=== PATIENT | female | born 1980 | race Caucasian/White ===

== ENCOUNTER 2024-08-17 19:38 | Emergency (ER) | payer OTHER, SELFPAY ==
[2024-08-17 19:38] VITALS: BMI 25.3
[2024-08-17 19:42] VITALS: BP 133/82
[2024-08-17 20:02] LABS: Urine Albumin 2+ (Neg - Trace); Urine Bilirubin Negative (Negative); Urine Character Slightly Cloudy (Clear); Urine Color Yellow; Urine Glucose Negative (Negative); Urine Ketone Negative (Negative); Urine Leukocyte 2+ (Negative); Urine Nitrite Negative (Negative); Urine Occult Blood 3+ (Negative); Urine Specific Gravity 1.015 (<1.030); Urine Urobilinogen Negative (Neg - 1+)
[2024-08-17 20:05] LABS: % Basophils 0.5 % (0-2); % Eosinophils 3.7 % (0-6); % Immature Granulocytes 0.3 % (0-0.5); % Lymphocytes 49.6 % (20.5-51.1); % Monocytes 6.8 % (1.7-9.3); % Neutrophils 39.1 % (42.2-75.2); Absolute Eosinophils 0.3 10^3/uL (0-0.7); Absolute Lymphocytes 3.9 10^3/uL (1.2-3.4); Absolute Monocytes 0.5 10^3/uL (0.1-0.6); Absolute Neutrophils 3.1 10^3/uL (1.4-6.5); Hematocrit 34.5 % (37.0-47.0); Hemoglobin 12.3 g/dL (12.0-16.0); Mean Corp Hgb Conc. 35.7 g/dL (33.0-37.0); Mean Corpuscular Hgb 32.1 pg (27.0-31.0); Mean Corpuscular Volume 90.1 fL (81.0-99.0); Nucleated Red Blood Cells % 0 %; Platelet Count 294 10^3/uL (130-400); Red Blood Cell Count 3.83 10^6/uL (4.20-5.40); Red Cell Dist. Width 11.8 % (11.5-14.5); White Blood Cell Count 7.9 10^3/uL (4.8-10.8)
[2024-08-17 20:12] LABS: HCG, Serum Qualitative Screen Negative
[2024-08-17 20:14] LABS: Urine Bacteria Few (Negative); Urine Red Blood Cell 30-40 /HPF (0-2); Urine Squamous Cell >30 /LPF (Few); Urine White Cell 21-25 /HPF (0-5)
[2024-08-17 20:23] LABS: ALT (SGPT) 16 U/L (0-35); AST (SGOT) 23 U/L (14-36); Albumin 3.8 g/dl (3.5-5.0); Alkaline Phosphatase 62 U/L (38-126); Blood Urea Nitrogen 22 mg/dl (7-17); Calcium 9.2 mg/dl (8.4-10.2); Carbon Dioxide 25 mmol/L (22-30); Chloride 105 mmol/L (98-107); Glucose 126 mg/dl (70-99); Lipase 179 U/L (23-300); Potassium 3.7 mmol/L (3.5-5.1); Sodium 137 mmol/L (135-145); Total Bilirubin 0.4 mg/dl (0.2-1.3); Total Protein 6.5 g/dl (6.3-8.2); eGFR > 60.00
[2024-08-17 22:13] VITALS: BP 120/94
[2024-08-17] MEDS: NSS 1000 IV (22:56)
[2024-08-17 23:01] VITALS: BP 111/89
[2024-08-18] VITALS: BP 107/70
[2024-08-18 00:01] LABS: Urine Albumin 1+ (Neg - Trace); Urine Bilirubin Negative (Negative); Urine Character Clear (Clear); Urine Color Yellow; Urine Glucose Negative (Negative); Urine Ketone Negative (Negative); Urine Leukocyte 1+ (Negative); Urine Nitrite Negative (Negative); Urine Occult Blood 3+ (Negative); Urine Specific Gravity 1.015 (<1.030); Urine Urobilinogen Negative (Neg - 1+)
[2024-08-18 01:00] VITALS: BP 100/68
[2024-08-18 01:36] LABS: Urine Bacteria Few (Negative); Urine Red Blood Cell 30-40 /HPF (0-2); Urine Squamous Cell >30 /LPF (Few)
--- NOTE | 2024-08-18 01:50 | ED.GENMED ---
History of Present Illness
General
Chief Complaint: Flank Pain
Source: patient
Exam Limitations: none
Time Seen by Provider: 08/17/24 22:33
Nursing documentation reviewed up to this point in time: agreed with
History of Present Illness
History of Present Illness:
44-year-old female presenting to the emergency department today with concerns of any stone seen on ultrasound today. Has had some intermittent flank pain in the past few days. No known history of kidney stones.
Review of Systems
Review of Systems
Allergies reviewed?: Yes
All Other Systems: ROS reviewed and negative except as documented in HPI and ROS
Phy Exam
Physical Exam
Physical Exam:
GENERAL: Alert , in no apparent distress
EYE: pupils equal and reactive
NECK: Supple, no significant adenopathy.
ENT: o/p clr, mmm.
CARDIAC: Regular rate and rhythm .
LUNGS: Clear breath sounds bilaterally, no acute respiratory distress, no wheezes/rales/rhonchi
ABDOMEN: Soft, without focal tenderness, no r/g, no cvat
NEUROLOGICAL: Alert and oriented, no focal neuro deficits
SKIN: Warm and dry, skin intact.
MUSCULOSKELETAL: No edema, well perfused.
PSYCH: Normal and appropriate interaction.
Course
Orders/Labs/Results
Orders:
Orders
08/17/24 19:46
Test Result ONCE
08/17/24 19:52
Urinalysis Reflex To Culture Urgent
Date Specimen was Collected: 08/17/24
Time Specimen was Collected: 19:46
Urine Microscopic Reflex Cult Urgent
Urine Culture Urgent
[facility] Source: U
Specimen Description:
Date Specimen was Collected: 08/17/24
Time Specimen was Collected: 19:46
08/17/24 19:54
Complete Blood Count/With Diff Urgent
Comprehensive Metabolic Panel Urgent
HCG, Serum Qualitative Screen Urgent
Lipase Urgent
08/17/24 22:42
CT Abd/pel Without Iv Or Oral Urgent
Comment:
Reason For Exam: right flank pain
0.9% Sodium Chloride 1000 ml [Nss] 1,000 ml IV BOLUS
08/17/24 23:54
Urinalysis Reflex To Culture Urgent
Date Specimen was Collected: 08/17/24
Time Specimen was Collected: 23:52
Urine Microscopic Reflex Cult Urgent
Urine Culture Urgent
TR[facility] Source: U
Specimen Description:
Date Specimen was Collected: 08/17/24
Time Specimen was Collected: 23:52
Abnormal Lab Results
08/17/24 08/17/24 08/17/24
19:52 19:54 23:54
RBC 3.83 L 10^6/uL
(4.20-5.40)
Hct 34.5 L %
(37.0-47.0)
MCH 32.1 H pg
(27.0-31.0)
Absolute Lymphs (auto) 3.9 H 10^3/uL
(1.2-3.4)
Neutrophils % 39.1 L %
(42.2-75.2)
BUN 22 H mg/dl
(7-17)
Glucose 126 H mg/dl
(70-99)
Ur Occult Blood Reflex 3+ A 3+ A
(Negative) (Negative)
Leukocyte Esterase Rfl 2+ A 1+ A
(Negative) (Negative)
Urine RBC 30-40 A /HPF 30-40 A /HPF
(0-2) (0-2)
Urine WBC (Reflex) 21-25 A /HPF
(0-5)
Urine Bacteria (Reflex) Few A Few A
(Negative) (Negative)
Urine Albumin (Reflex) 2+ A 1+ A
(Neg - Trace) (Neg - Trace)
08/17/24 19:54
08/17/24 19:54
Vital Signs
Initial and Last Documented VS:
Initial Vital Signs
Temp Pulse Resp BP Pulse Ox
98.5 F 88 16 133/82 100
08/17/24 19:42 08/17/24 19:42 08/17/24 19:42 08/17/24 19:42 08/17/24 19:42
Last Documented Vital Signs
Temp Pulse Resp BP Pulse Ox
98.5 F 68 16 100/68 97
08/17/24 19:42 08/17/24 22:13 08/17/24 19:42 08/18/24 01:00 08/18/24 01:15
MDM/Problems Addressed
MDM/Problems Addressed:
44-year-old female presenting to the emergency department with right-sided flank pain over the past few days now mainly to the right lower abdomen not reproducible on examination labs unremarkable. Initial urinalysis contaminated this was repeated
that did not show any signs of infection. Had moderate right hydro ureter nephrosis with a 5 mm obstructing stone at the distal ureter. Patient asymptomatic here stable for follow-up with urology. Return precautions given.
*Critical Care Note
Total Time (30-74mins, 75-104mins- exclusive of procedures): Not Applicable
ED Attending Note
-
Portions of this chart may have been created with voice recognition software.� Occasional wrong word or��sound alike� substitutions may have occurred due to the inherent limitations of voice recognition software.
Discharge Plan
Departure
Patient Disposition: Home (Routine Discharge)
Date of Disposition: 08/18/24
Time of Disposition: 01:51
Patient with high blood pressure during this ER visit?: No
Condition: Good
Covid-19: Not Applicable
Discharge Problem:
Kidney stone
Instructions: Kidney Stones (DC), How to Strain Your Urine
Prescriptions:
New
ondansetron 4 mg tablet,disintegrating
4 mg PO Q6H PRN (Reason: nausea and vomiting) Qty: 7 0RF
tamsulosin [Flomax] 0.4 mg capsule
0.4 mg PO HS 7 Days Qty: 7 0RF
Referrals:
NONE,* [Family Provider] -
Al Nelson MD [Active] - Follow up in 5-7 days
Activity Restrictions/Additional Instructions:
You came to the emergency department today with concerns of flank pain. You are found to have a 5 mm distal stone. No signs of complication. Please take medications to help with symptoms and otherwise follow-up closely with urology for ongoing
symptoms. Return for any worsening, new or concerning symptoms.
Interventions
Interventions:
*Risk Screen - Suicide Last Done: 08/17/24 19:42
*General Assessment Last Done: 08/17/24 19:42
*Neglect/Abuse Screening Last Done: 08/17/24 19:42
*ED COVID-19 Vaccine History Last Done: 08/17/24 19:42
AB-Gdsemt-Ymzvpnzkrp Assessment Last Done: 08/18/24 00:46
ED-Female Genitourinary Assessment Last Done: 08/18/24 00:46
Discharge Date and Time
Print Language: SAMI
[2024-08-18] MEDS: FLOMAX 0.4 MG PO (02:04)
== END 2024-08-18 02:12 | disposition home or self-care (01) ==
LOC: EMR 19:38
PROVIDERS: Emergency Medicine; Physician Assistant; EMERGENCY PHYSICIAN Emergency Medicine
DX: N13.2 Hydronephrosis with renal and ureteral calculous obstruction (principal)
CPT/HCPCS: 96360; 99284; 74176; 80053; 81003; 81015; 83690; 84703; 85025; 87086